=== PATIENT | female | born 1995 | race Caucasian/White ===

== ENCOUNTER 2017-11-03 19:18 | Emergency (ER) | payer SELFPAY ==
[~2017-11-03] VITALS: Ht 167.6 cm; Wt 74.8 kg
[~2017-11-03 19:18] MED LIST: 'PARAFON FORTE500 M1 PO; AMOXICILLIN500 MG PO; BACTRIM DS 8001 TA1 PO; HYDROCODONE BIT1 T11 PO; IBU-6600 MG PO; MOTRIN800 MG PO; NAPROSYN500 MG PO; TYLENOL325 M1 PO
[2017-11-03 19:19] VITALS: BP 127/76
[2017-11-03] MEDS ORDERED: AMOXICILLIN500 M2 PO (19:57)
== END 2017-11-03 20:06 | disposition home or self-care (01) ==
LOC: ED 19:18
DX: J02.9 Acute pharyngitis, unspecified (principal); H92.01 Otalgia, right ear; Z79.899 Other long term (current) drug therapy

== ENCOUNTER 2019-08-02 13:18 | Emergency (ER) | payer SELFPAY ==
[~2019-08-02] VITALS: Ht 167.6 cm; Wt 81.6 kg
[~2019-08-02 13:18] MED LIST changes: +AMOXICILLIN500 M2 PO
[2019-08-02 13:25] VITALS: BP 130/78
== END 2019-08-02 14:49 | disposition home or self-care (01) ==
LOC: ED 13:18
DX: R51 Headache (principal); Z79.899 Other long term (current) drug therapy; Z79.2 Long term (current) use of antibiotics

== ENCOUNTER 2021-07-03 15:04 | Emergency (ER) | payer OTHER ==
[~2021-07-03] VITALS: Ht 167.6 cm; Wt 95.3 kg
[2021-07-03 15:28] VITALS: BP 114/73
[2021-07-03 16:13] LABS: BASO # 0.1 10*3/uL (0.0-0.1); BASO % 0.6 % (0.0-1.0); EOS # 0.1 10*3/uL (0.0-0.4); EOS % 1.3 % (1.0-4.0); HEMATOCRIT 38.7 % (37.0-47.0); LYMPH # 2.7 10*3/uL (1.3-4.4); LYMPH % 32.7 % (27.0-41.0); MEAN CELL VOLUME 90.2 fl (81.0-99.0); MEAN CORPUSCULAR HGB 29.6 pg (27.0-31.0); MEAN CORPUSCULAR HGB CONC 32.8 g/dl (33.0-37.0); MONO # 0.7 10*3/uL (0.1-1.0); MONO % 8.4 % (3.0-9.0); NEUT # 4.7 10*3/uL (2.3-7.9); NEUT % 56.8 % (47.0-73.0); PLATELET COUNT AUTOMATED 285 10*3/uL (130-400); RED BLOOD COUNT 4.29 10*6/uL (4.10-5.10); RED CELL DISTRI WIDTH 13.4 % (0-14.5); WHITE BLOOD COUNT 8.4 10*3/uL (4.8-10.8)
[2021-07-03 16:31] LABS: BUN 6 mg/dl (7-24); CHLORIDE 111 mmol/L (98-107); POTASSIUM 3.8 mmol/L (3.5-5.1); SODIUM 139 mmol/L (136-145)
[2021-07-03 16:35] LABS: ALKALINE PHOSPHATASE 73 U/L (45-117); CREATININE 0.73 mg/dL (0.55-1.02); SGOT/AST 9 IU/L (3-35); SGPT/ALT 21 U/L (12-78); TOTAL PROTEIN 7.4 gm/dL (6.4-8.2)
[2021-07-03] MEDS ORDERED: PREDNISONE50 MG PO (16:52)
== END 2021-07-03 16:56 | disposition home or self-care (01) ==
LOC: ED 15:04
PROVIDERS: Nurse Practitioner Family
DX: B34.9 Viral infection, unspecified (principal); J98.01 Acute bronchospasm; F41.9 Anxiety disorder, unspecified; Z88.4 Allergy status to anesthetic agent

== ENCOUNTER → 2023-09-02 | Outpatient (CLI) | payer OTHER ==
[~2023-09-02] MED LIST changes: +PREDNISONE50 MG PO
== END | disposition home or self-care (01) ==
LOC: RAD 12:07
PROVIDERS: ATTEND Nurse Practitioner
DX: M25.461 Effusion, right knee (principal)

== ENCOUNTER 2024-10-03 11:33 | Emergency (ER) | payer OTHER ==
[~2024-10-03] VITALS: Ht 167.6 cm; Wt 95.3 kg
[2024-10-03 11:41] VITALS: BP 138/82
[2024-10-03] MEDS ORDERED: LEXAPRO5 M1 PO (11:42)
[2024-10-03] MEDS ORDERED: Lidocaine Hydrochloride 15 ML UDC PO STA (12:03)
[2024-10-03] MEDS ORDERED: BENZOCAINE 20% 11.9 GM GEL T STA (12:03)
[2024-10-03] MEDS ORDERED: PENICILLIN V POTASSIUM 500 MG TAB PO ONE (12:05)
[2024-10-03] MEDS ORDERED: Acetaminophen/Hydrocodone 5 MG/325 MG TABLET PO ONE (12:05)
[2024-10-03] MEDS ORDERED: PENICILLIN VK500 MG PO (12:20)
[2024-10-03] MEDS ORDERED: MELOXICAM5 MG PO (12:22)
[2024-10-03] MEDS ORDERED: Ketorolac Tromethamine 60 MG/2 ML VIAL IM ONE (12:25)
== END 2024-10-03 12:48 | disposition home or self-care (01) ==
LOC: ED 11:33
DX: K03.81 Cracked tooth (principal); R22.0 Localized swelling, mass and lump, head; F41.9 Anxiety disorder, unspecified; Z88.8 Allergy status to other drugs, medicaments and biological substances

== ENCOUNTER 2024-10-04 20:41 | Inpatient (IN) | payer SELFPAY ==
[~2024-10-04] VITALS: Ht 167.6 cm; Wt 95.3 kg
[~2024-10-04 20:41] MED LIST changes: +LEXAPRO5 M1 PO; +MELOXICAM5 MG PO; +PENICILLIN VK500 MG PO
[2024-10-04 22:17] LABS: BASO # 0.1 10*3/uL (0.0-0.1); BASO % 0.3 % (0.0-1.0); EOS % 0.2 % (1.0-4.0); HEMATOCRIT 35.7 % (37.0-47.0); MEAN CELL VOLUME 86.9 fl (81.0-99.0); MEAN CORPUSCULAR HGB 27.7 pg (27.0-31.0); MEAN CORPUSCULAR HGB CONC 31.9 g/dl (33.0-37.0); MEAN PLATELET VOLUME 9.7 fl (9.6-12.3); MONO # 1.4 10*3/uL (0.1-1.0); MONO % 7.5 % (3.0-9.0); NEUT # 15.1 10*3/uL (2.3-7.9); NEUT % 79.7 % (47.0-73.0); PLATELET COUNT AUTOMATED 330 10*3/uL (130-400); RED BLOOD COUNT 4.11 10*6/uL (4.10-5.10)
[2024-10-04 22:35] LABS: BUN 8 mg/dl (9-23); CHLORIDE 106 mmol/L (98-107); POTASSIUM 3.5 mmol/L (3.4-5.1)
[2024-10-05] MEDS ORDERED: SODIUM CHLORIDE 0.9% 1,000 ML IV SCH (00:35)
[2024-10-05] MEDS ORDERED: Vancomycin Hydrochloride 250 ML IV ONE (00:35)
[2024-10-05] MEDS ORDERED: Piperacillin Sodium/Tazobact 50 ML IV ONE (00:35)
[2024-10-05] MEDS ORDERED: ACETAMINOPHEN 650 MG SUPP R PRN (01:55)
[2024-10-05] MEDS ORDERED: ACETAMINOPHEN 325 MG TAB PO PRN (01:55)
[2024-10-05] MEDS ORDERED: BISACODYL 5 MG TAB PO PRN (01:55)
[2024-10-05] MEDS ORDERED: BISACODYL 10 MG SUPP R PRN (01:55)
[2024-10-05] MEDS ORDERED: Magnesium Hydroxide 30 ML UDC PO PRN (01:55)
[2024-10-05] MEDS ORDERED: MORPHINE Sulfate 2 MG/ML SYR IV PRN (01:55)
[2024-10-05] MEDS ORDERED: Acetaminophen/Hydrocodone 5 MG/325 MG TABLET PO PRN (01:55)
[2024-10-05] MEDS ORDERED: Ondansetron Hydrochloride 4 MG/2 ML VIAL IV PRN (02:40)
[2024-10-05] MEDS ORDERED: Ketorolac Tromethamine 15 MG/ML VIAL IV ONE (03:35)
[2024-10-05 04:48] LABS: BILIRUBIN Negative (Negative); BLOOD 3+ (Negative); CLARITY Clear (Clear); COLOR Yellow (Yellow); GLUCOSE Negative (Negative); KETONE Negative (Negative); LEUKO ESTERASE Negative (Negative); NITRITE Negative (Negative); PH 5.5 (4.5-8.0)
[2024-10-05 04:49] VITALS: BP 111/68
[2024-10-05 05:12] LABS: BACTERIA TRACE; RBC 21-30 rbc/hpf (0-2); WBC 0-2 wbc/hpf (0-5)
[2024-10-05] MEDS ORDERED: Piperacillin Sodium/Tazobact 50 ML IV SCH (06:00)
[2024-10-05 06:25] LABS: BASO % 0.3 % (0.0-1.0); EOS # 0.1 10*3/uL (0.0-0.4); EOS % 0.4 % (1.0-4.0); HEMATOCRIT 31.7 % (37.0-47.0); MEAN CELL VOLUME 87.6 fl (81.0-99.0); MEAN CORPUSCULAR HGB 27.9 pg (27.0-31.0); MEAN CORPUSCULAR HGB CONC 31.9 g/dl (33.0-37.0); MEAN PLATELET VOLUME 10.2 fl (9.6-12.3); MONO # 1.3 10*3/uL (0.1-1.0); MONO % 8.6 % (3.0-9.0); NEUT % 70.2 % (47.0-73.0); PLATELET COUNT AUTOMATED 272 10*3/uL (130-400); RED BLOOD COUNT 3.62 10*6/uL (4.10-5.10); RED CELL DISTRI WIDTH 14.9 % (0-14.5); WHITE BLOOD COUNT 15.7 10*3/uL (4.8-10.8)
[2024-10-05 07:10] LABS: ALKALINE PHOSPHATASE 74 U/L (46-116); BUN 7 mg/dl (9-23); CHLORIDE 110 mmol/L (98-107); CHOLESTEROL 113 mg/dL (<200); FREE T4 1.13 ng/dl (0.89-1.76); LDL CHOLESTEROL 56 mg/dL (9-159); POTASSIUM 3.5 mmol/L (3.4-5.1); SGPT/ALT 9 U/L (5-49); TOTAL PROTEIN 6.1 gm/dL (6.0-8.0); TRIGLYCERIDES 84 mg/dl (<150)
[2024-10-05 08:15] VITALS: BP 121/85
[2024-10-05 08:55] LABS: VITAMIN D, 25-HYDROXY 15.4 ng/mL (30-100)
[2024-10-05] MEDS ORDERED: VANCOMYCIN HCL 1,250 MG in SODIUM CHLORIDE 0.9% 250 ML IV SCH (10:00)
[2024-10-05] MEDS ORDERED: Enoxaparin Sodium 40 MG/0.4 ML SYR SC SCH (10:00)
[2024-10-05] MEDS ORDERED: methylPREDNISolone sod succ 125 MG VIAL IV ONE (10:45)
[2024-10-05] MEDS ORDERED: Ketorolac Tromethamine 15 MG/ML VIAL IV PRN (11:40)
[2024-10-05] MEDS ORDERED: TEMAZEPAM 15 MG CAP PO PRN (22:00)
[2024-10-05] MEDS ORDERED: ESCITALOPRAM OXALATE 10 MG TAB PO SCH ×2 (22:00)
[2024-10-05] MEDS ORDERED: FLUTICASONE PROPIONATE Nasal 16 Gm spray NAS SCH (22:00)
[2024-10-05 22:40] VITALS: BP 131/75
[2024-10-05] MEDS ORDERED: POTASSIUM CHLORIDE 20 MEQ TAB PO ONE (23:05)
[2024-10-06 06:09] VITALS: BP 122/82
[2024-10-06 06:09] LABS: BASO % 0.2 % (0.0-1.0); EOS % 0.1 % (1.0-4.0); HEMATOCRIT 32.1 % (37.0-47.0); MEAN CELL VOLUME 86.8 fl (81.0-99.0); MEAN CORPUSCULAR HGB 27.8 pg (27.0-31.0); MEAN CORPUSCULAR HGB CONC 32.1 g/dl (33.0-37.0); MEAN PLATELET VOLUME 9.9 fl (9.6-12.3); MONO # 1.3 10*3/uL (0.1-1.0); MONO % 7.9 % (3.0-9.0); NEUT # 12.4 10*3/uL (2.3-7.9); NEUT % 74.1 % (47.0-73.0); PLATELET COUNT AUTOMATED 296 10*3/uL (130-400); RED CELL DISTRI WIDTH 15.1 % (0-14.5); WHITE BLOOD COUNT 16.8 10*3/uL (4.8-10.8)
[2024-10-06 06:24] LABS: ALKALINE PHOSPHATASE 73 U/L (46-116); BUN 9 mg/dl (9-23); CHLORIDE 109 mmol/L (98-107); POTASSIUM 4.1 mmol/L (3.4-5.1); SGPT/ALT 9 U/L (5-49); TOTAL PROTEIN 6.7 gm/dL (6.0-8.0)
[2024-10-06 08:37] VITALS: BP 126/83
[2024-10-06] MEDS ORDERED: methylPREDNISolone sod succ 40 MG VIAL IV ONE (09:05)
[2024-10-06] MEDS ORDERED: FLUTICASONE PROPIONATE Nasal 16 Gm spray NAS SCH (10:00)
[2024-10-06] MEDS ORDERED: Cholecalciferol 2,000 UNIT TABLET (50 MCG) PO SCH (10:00)
[2024-10-06] MEDS ORDERED: VANCOMYCIN/WATER FOR INJ (PEG) 350 ML IV SCH (10:02)
[2024-10-06] MEDS ORDERED: VITAMIN D350 MCG PO (10:05)
[2024-10-06] MEDS ORDERED: AMOX-CLAV 875-1 EACH PO (10:05)
== END 2024-10-06 10:09 | disposition home or self-care (01) | DRG 872 ==
LOC: ED 20:41 → EDHOLD 10-05 01:24
PROVIDERS: Internal Medicine; Student in an Organized Health Care Education/Training Program; ADMIT Family Medicine; ATTEND Family Medicine
DX: A41.9 Sepsis, unspecified organism (principal); L03.211 Cellulitis of face; K04.7 Periapical abscess without sinus; F41.1 Generalized anxiety disorder; D64.9 Anemia, unspecified; R73.9 Hyperglycemia, unspecified; F17.290 Nicotine dependence, other tobacco product, uncomplicated; K02.9 Dental caries, unspecified; Z88.8 Allergy status to other drugs, medicaments and biological substances; Z79.899 Other long term (current) drug therapy; Z68.33 Body mass index [BMI] 33.0-33.9, adult; Z71.6 Tobacco abuse counseling